=== PATIENT | male | born 1985 | race African-American/Black ===

== ENCOUNTER → 2018-10-26 | Outpatient (CLI) | payer MEDICAID | END | disposition home or self-care (01) | LOC: RAD 10:36 | DX: M54.5 Low back pain (principal); M25.551 Pain in right hip; M25.579 Pain in unspecified ankle and joints of unspecified foot | CPT/HCPCS: 72100; 73070; 73502; 73560 ==

== ENCOUNTER 2019-02-06 14:54 | Emergency (ER) | payer MEDICAID ==
[~2019-02-06] VITALS: Ht 203.2 cm; Wt 113.0 kg
[2019-02-06] MEDS ORDERED: KETOROLAC 30MG/ML VIAL IM ONE (16:00)
[2019-02-06] MEDS ORDERED: HYDROCODONE/ACETAMINOPHEN 5/325MG TABLET PO ONE (18:30)
[2019-02-06 19:03] VITALS: BP 119/75
== END 2019-02-06 19:00 | disposition home or self-care (01) ==
LOC: ER 14:54
DX: S80.12XA Contusion of left lower leg, initial encounter (principal); W22.8XXA Striking against or struck by other objects, initial encounter; Y93.89 Activity, other specified; Y92.89 Other specified places as the place of occurrence of the external cause; Y99.8 Other external cause status
CPT/HCPCS: 73562; 93971; 96372; 99284; J1885; Z7610

== ENCOUNTER 2019-05-21 01:44 | Emergency (ER) | payer MEDICAID ==
[~2019-05-21] VITALS: Ht 63.5 cm; Wt 7.0 kg
[2019-05-21] MEDS ORDERED: SODIUM CHLORIDE 0.9% 150 ML IV ONE (03:30)
[2019-05-21] MEDS ORDERED: ALBUTEROL (0.5%) 2.5MG/0.5ML NEB HHN ONE (03:30)
[2019-05-21 04:25] LABS: BG BASE EXCESS -2.7 mmol/L (-2.0-2.0); BG FRACTION INSPIRED OXYGEN 40; BG HCO3 ACT 22.9 mmol/L (22.0-26.0); BG OXYGEN SATURATION 95.4 % (92.0-98.5); BG PCO2 42.7 mmHg (35.0-45.0); BG PH 7.347 (7.350-7.450); BG PO2 80.7 mmHg (75.0-100.0); BG SAMPLE SITE HEEL; BG VENT MODE VAPOTHERM
[2019-05-21 04:35] LABS: HEMATOCRIT 33.7 % (39.0-52.0); HEMOGLOBIN 11.6 g/dL (12.0-16.5); MEAN CORPUSCULAR HEMOGLOBIN 27.9 pg (27.0-38.0); MEAN CORPUSCULAR VOLUME 81.4 fL (90.0-104.0); PLATELET 417 x1000/uL (130-400); RED BLOOD CELL COUNT 4.14 mill/uL (3.7-5.2); RED CELL DISTRIBUTION WIDTH 13.3 % (11.6-14.6)
[2019-05-21 04:39] LABS: CHLORIDE 106 mEq/L (98-107)
[2019-05-21] MEDS ORDERED: SODIUM CHLORIDE 0.9% 1,000 ML IV ONE (05:15)
[2019-05-21 05:38] VITALS: BP 100/61
== END 2019-05-21 05:38 | disposition designated cancer center or children's hospital (05) ==
LOC: ER 01:44
DX: J21.9 Acute bronchiolitis, unspecified (principal)
CPT/HCPCS: 36415; 36600; 71045; 80053; 82805; 83605; 85027; 87040; 87420; 87804; 99291; C1893; J7050